=== PATIENT | female | born 1995 | race African-American/Black ===

== ENCOUNTER 2023-05-20 11:01 | Emergency (ER) | payer MEDICAID ==
[~2023-05-20] VITALS: Ht 160 cm; Wt 96.5 kg
[2023-05-20 12:03] LABS: Alanine Aminotransferase 10 U/L (7-40); Alkaline Phosphatase 188 U/L (46-116); Anion Gap 13 (5-15); Calcium 9.9 mg/dL (8.5-10.1); Carbon Dioxide 18 mmol/L (20-30); Chloride 105 mmol/L (98-107); Glucose 102 mg/dL (74-106); Potassium 3.6 mmol/L (3.5-5.1); Sodium 136 mmol/L (136-145)
[2023-05-20 12:04] LABS: Albumin 4.1 g/dL (3.2-4.8); Aspartate Aminotransferase 11 U/L (13-40); Bilirubin, Total 0.4 mg/dL (0.2-1.0); Total Protein 7.7 g/dL (5.7-8.2)
[2023-05-20 12:05] LABS: BUN/Creatinine Ratio 8.8 (10.0-20.0); Blood Urea Nitrogen < 5 mg/dL (9-23)
[2023-05-20 12:09] VITALS: BP 100/63; PULSE 90; RESP 18; TEMP 97.1; O2SAT 100
[2023-05-20 13:07] LABS: Urine Bacteria MOD /hpf (None Seen); Urine Blood 1+ /uL (Negative); Urine Clarity HAZY (Clear); Urine Color Yellow (Yellow); Urine Mucus FEW (None Seen); Urine Protein, UAD TRACE (Negative); Urine Specific Gravity 1.021 (1.001-1.035); Urine Urobilinogen Normal (Negative); Urine WBC 10 /hpf (0 - 5); Urine pH 5.5 (5.0-8.0)
[2023-05-20] MEDS ORDERED: ACET-1304 PO (13:15)
[2023-05-20] MEDS ORDERED: CEPH500C PO (13:15)
== END 2023-05-20 13:23 | disposition home or self-care (01) ==
LOC: ER 11:01
DX: O20.0 Threatened abortion (principal); O23.42 Unspecified infection of urinary tract in pregnancy, second trimester; N39.0 Urinary tract infection, site not specified; J03.90 Acute tonsillitis, unspecified; Z3A.15 15 weeks gestation of pregnancy; Z79.899 Other long term (current) drug therapy
CPT/HCPCS: 36415; 76805; 80053; 81001; 84702

== ENCOUNTER 2023-09-20 09:05 | Observation (INO) | payer MEDICAID ==
[~2023-09-20 09:05] MED LIST: ACET-1304 PO; CEPH500C PO
[2023-09-20] MEDS ORDERED: PREN-96 PO (10:06)
== END 2023-09-20 10:43 | disposition home or self-care (01) ==
LOC: UNDOADMOB 09:05 → LDRP 09:05 → UNDODISOB 10:43
PROVIDERS: ADMIT Obstetrics & Gynecology; ATTEND Obstetrics & Gynecology
DX: O99.283 Endocrine, nutritional and metabolic diseases complicating pregnancy, third trimester (principal); E05.00 Thyrotoxicosis with diffuse goiter without thyrotoxic crisis or storm; Z3A.32 32 weeks gestation of pregnancy
CPT/HCPCS: 59025; 76818; 81002; G0378

== ENCOUNTER 2023-09-24 08:52 | Observation (INO) | payer MEDICAID ==
[~2023-09-24 08:52] MED LIST changes: +PREN-96 PO
[2023-09-24] MEDS ORDERED: METH5TAB98 PO (09:47)
== END 2023-09-24 11:00 | disposition home or self-care (01) ==
LOC: UNDOADMOB 08:52 → LDRP 08:52
PROVIDERS: ADMIT Obstetrics & Gynecology; ATTEND Obstetrics & Gynecology
DX: O99.283 Endocrine, nutritional and metabolic diseases complicating pregnancy, third trimester (principal); E03.9 Hypothyroidism, unspecified; Z3A.33 33 weeks gestation of pregnancy
CPT/HCPCS: 59025; 76818; 81002; G0378

== ENCOUNTER 2023-09-28 09:09 | Observation (INO) | payer MEDICAID ==
[~2023-09-28 09:09] MED LIST changes: +METH5TAB98 PO
== END 2023-09-28 13:34 | disposition home or self-care (01) ==
LOC: LDRP 12:01 → UNDOADMOB 12:01 → LDRP 12:10
PROVIDERS: ADMIT Obstetrics & Gynecology; ATTEND Obstetrics & Gynecology
DX: O99.283 Endocrine, nutritional and metabolic diseases complicating pregnancy, third trimester (principal); E05.90 Thyrotoxicosis, unspecified without thyrotoxic crisis or storm; O21.2 Late vomiting of pregnancy; O26.893 Other specified pregnancy related conditions, third trimester; R51.9 Headache, unspecified; H53.8 Other visual disturbances; N89.8 Other specified noninflammatory disorders of vagina; Z3A.33 33 weeks gestation of pregnancy; Z98.891 History of uterine scar from previous surgery
CPT/HCPCS: 59025; 76818; 81002; 94760; G0378

== ENCOUNTER 2023-10-01 11:07 | Observation (INO) | payer MEDICAID | END 2023-10-01 13:51 | disposition home or self-care (01) | LOC: UNDOADMOB 11:07 → LDRP 11:07 | PROVIDERS: ADMIT Obstetrics & Gynecology; ATTEND Obstetrics & Gynecology | DX: O99.283 Endocrine, nutritional and metabolic diseases complicating pregnancy, third trimester (principal); E05.90 Thyrotoxicosis, unspecified without thyrotoxic crisis or storm; Z3A.35 35 weeks gestation of pregnancy | CPT/HCPCS: 59025; 76818; 81002; 94760; G0378 ==

== ENCOUNTER 2023-10-05 10:20 | Observation (INO) | payer MEDICAID ==
[2023-10-05 17:18] LABS: Urine Bacteria None Seen /hpf (None Seen)
[2023-10-05 17:19] LABS: Basophils # (auto) 0 10 ^3/uL (0-0.2); Basophils % (auto) 0.3 % (0.0-2.0); Eosinophils # (auto) 0 10 ^3/uL (0-0.8); Eosinophils % (auto) 0.6 % (0.0-7.0); Hematocrit 30.3 % (36.0-46.0); Hemoglobin 9.7 g/dL (12.2-16.2); Lymphocytes # (auto) 2.6 10 ^3/uL (0.4-5.4); Lymphocytes % (auto) 41.2 % (10.0-50.0); Mean Corpuscular Hemoglobin 24.7 pg (28.0-32.0); Mean Corpuscular Hgb Conc. 32.1 g/dL (32.0-36.0); Mean Corpuscular Volume 77.1 fL (80.0-100.0); Monocytes # (auto) 0.5 10 ^3/uL (0-1.3); Monocytes % (auto) 7.4 % (0.0-12.0); Neutrophils # (auto) 3.2 10 ^3/uL (1.6-8.6); Neutrophils % (auto) 50.5 % (37.0-80.0); Nucleated Red Blood Cells % 0.1 %; Red Blood Cells 3.94 10^6/uL (4.0-5.20); White Blood Cell 6.4 10^3/uL (4.4-10.8)
[2023-10-05 17:26] LABS: Urine Blood Negative /uL (Negative); Urine Clarity Turbid (Clear); Urine Color Yellow (Yellow); Urine Mucus FEW (None Seen); Urine Protein, UAD TRACE (Negative); Urine Specific Gravity 1.016 (1.001-1.035); Urine Urobilinogen 2 mg/dL (Negative); Urine WBC 3 /hpf (0 - 5)
[2023-10-05 17:33] LABS: INR 0.96 (0.9-1.15); Partial Thromboplastin Time 25.6 SEC (24.5-34.5); Prothrombin Time 10.2 sec (9.3-11.8)
[2023-10-05 17:36] LABS: Protein, Urine 34.5 mg/dL (0.0-11.9)
[2023-10-05 17:37] LABS: Alkaline Phosphatase 146 U/L (46-116); Anion Gap 6 (5-15); Aspartate Aminotransferase < 8 U/L (13-40); Calcium 8.1 mg/dL (8.7-10.4); Carbon Dioxide 23 mmol/L (20-30); Chloride 107 mmol/L (98-107); Glucose 80 mg/dL (74-106); Potassium 3.5 mmol/L (3.5-5.1); Sodium 136 mmol/L (136-145); Uric Acid 4.4 mg/dL (3.1-7.8)
[2023-10-05 17:38] LABS: Bilirubin, Total 0.3 mg/dL (0.2-1.0)
[2023-10-05 17:39] LABS: Creatinine, Urine 142.19 mg/dL (30.0-125.0); Urine Protein/Creatinine Ratio 0.24
[2023-10-05 18:04] LABS: Alanine Aminotransferase < 9 U/L (7-40); BUN/Creatinine Ratio 10.2 (10.0-20.0); Blood Urea Nitrogen < 5 mg/dL (9-23)
[2023-10-05] MEDS ORDERED: FER325T PO (18:07)
[2023-10-05] MEDS ORDERED: ASCO500T11 PO (18:07)
== END 2023-10-05 18:28 | disposition home or self-care (01) ==
LOC: UNDOADMOB 15:35 → LDRP 15:35
PROVIDERS: ADMIT Obstetrics & Gynecology; ATTEND Obstetrics & Gynecology
DX: O99.283 Endocrine, nutritional and metabolic diseases complicating pregnancy, third trimester (principal); E05.90 Thyrotoxicosis, unspecified without thyrotoxic crisis or storm; O99.013 Anemia complicating pregnancy, third trimester; D50.9 Iron deficiency anemia, unspecified; O26.893 Other specified pregnancy related conditions, third trimester; R51.9 Headache, unspecified; Z3A.34 34 weeks gestation of pregnancy; Z86.2 Personal history of diseases of the blood and blood-forming organs and certain disorders involving the immune mechanism
CPT/HCPCS: 36415; 59025; 76818; 80053; 81001; 81002; 82570; 84156; 84550; 85025; 85610; 85730; 94760; G0378

== ENCOUNTER 2023-10-08 08:46 | Observation (INO) | payer MEDICAID ==
[~2023-10-08 08:46] MED LIST changes: -ACET-1304 PO; +ASCO500T11 PO; -CEPH500C PO; +FER325T PO
== END 2023-10-08 10:00 | disposition home or self-care (01) ==
LOC: LDRP 08:46 → UNDOADMOB 08:46 → LDRP 08:47 → UNDODISOB 10:00
PROVIDERS: ADMIT Obstetrics & Gynecology; ATTEND Obstetrics & Gynecology
DX: O99.283 Endocrine, nutritional and metabolic diseases complicating pregnancy, third trimester (principal); E05.90 Thyrotoxicosis, unspecified without thyrotoxic crisis or storm; Z3A.35 35 weeks gestation of pregnancy
CPT/HCPCS: 59025; 76818; 81002; 94760; G0378

== ENCOUNTER 2023-10-08 12:30 | Observation (INO) | payer MEDICAID ==
[2023-10-08 13:43] LABS: Fern Testing Negative
== END 2023-10-08 14:06 | disposition home or self-care (01) ==
LOC: UNDOADMOB 12:30 → LDRP 12:30
PROVIDERS: ADMIT Obstetrics & Gynecology; ATTEND Obstetrics & Gynecology
DX: O99.283 Endocrine, nutritional and metabolic diseases complicating pregnancy, third trimester (principal); E05.90 Thyrotoxicosis, unspecified without thyrotoxic crisis or storm; Z3A.35 35 weeks gestation of pregnancy
CPT/HCPCS: 59025; 81002; 84112; 94760; G0378; Q0114

== ENCOUNTER 2023-10-12 08:13 | Observation (INO) | payer MEDICAID | END 2023-10-12 11:25 | disposition home or self-care (01) | LOC: LDRP 09:07 → UNDOADMOB 09:07 → LDRP 09:26 → UNDODISOB 11:25 | PROVIDERS: ADMIT Obstetrics & Gynecology; ATTEND Obstetrics & Gynecology | DX: O99.283 Endocrine, nutritional and metabolic diseases complicating pregnancy, third trimester (principal); E05.90 Thyrotoxicosis, unspecified without thyrotoxic crisis or storm; Z3A.35 35 weeks gestation of pregnancy | CPT/HCPCS: 59025; 76818; 81002; G0378 ==

== ENCOUNTER 2023-10-15 09:17 | Observation (INO) | payer MEDICAID | END 2023-10-15 10:55 | disposition home or self-care (01) | LOC: LDRP 09:17 → UNDOADMOB 09:17 → LDRP 09:36 → UNDODISOB 10:55 | PROVIDERS: ADMIT Obstetrics & Gynecology; ATTEND Obstetrics & Gynecology | DX: O99.283 Endocrine, nutritional and metabolic diseases complicating pregnancy, third trimester (principal); E03.9 Hypothyroidism, unspecified; O26.893 Other specified pregnancy related conditions, third trimester; R51.9 Headache, unspecified; Z3A.36 36 weeks gestation of pregnancy | CPT/HCPCS: 59025; 76818; 81002; G0378 ==

== ENCOUNTER 2023-10-19 08:31 | Observation (INO) | payer MEDICAID ==
[2023-10-19 13:51] LABS: Urine Bacteria None Seen /hpf (None Seen)
[2023-10-19 14:08] LABS: Urine Blood Negative /uL (Negative); Urine Clarity Turbid (Clear); Urine Color Light-Yellow (Yellow); Urine Mucus FEW (None Seen); Urine Protein, UAD Negative (Negative); Urine Specific Gravity 1.014 (1.001-1.035); Urine Urobilinogen Normal (Negative); Urine WBC 6 /hpf (0 - 5)
== END 2023-10-19 13:30 | disposition home or self-care (01) ==
LOC: UNDOADMOB 11:47 → LDRP 11:47 → UNDODISOB 13:30
PROVIDERS: ADMIT Obstetrics & Gynecology; ATTEND Obstetrics & Gynecology
DX: O99.283 Endocrine, nutritional and metabolic diseases complicating pregnancy, third trimester (principal); E05.90 Thyrotoxicosis, unspecified without thyrotoxic crisis or storm; Z3A.36 36 weeks gestation of pregnancy; Z79.899 Other long term (current) drug therapy
CPT/HCPCS: 59025; 76818; 81001; 81002; 87086; 94760; G0378

== ENCOUNTER 2023-10-22 07:14 | Observation (INO) | payer MEDICAID | END 2023-10-22 12:00 | disposition home or self-care (01) | LOC: LDRP 09:43 → UNDOADMOB 09:43 → LDRP 09:48 | PROVIDERS: ADMIT Obstetrics & Gynecology; ATTEND Obstetrics & Gynecology | DX: O99.283 Endocrine, nutritional and metabolic diseases complicating pregnancy, third trimester (principal); E05.90 Thyrotoxicosis, unspecified without thyrotoxic crisis or storm; Z3A.37 37 weeks gestation of pregnancy | CPT/HCPCS: 59025; 76818; 81002; 94760; G0378 ==

== ENCOUNTER 2023-10-26 10:52 | Observation (INO) | payer MEDICAID ==
[2023-10-26 13:49] LABS: Urine Bacteria None Seen /hpf (None Seen)
[2023-10-26 13:58] LABS: Urine Blood Negative /uL (Negative); Urine Clarity Turbid (Clear); Urine Color Light-Yellow (Yellow); Urine Protein, UAD Negative (Negative); Urine Specific Gravity 1.014 (1.001-1.035); Urine Urobilinogen Normal (Negative); Urine WBC 7 /hpf (0 - 5); Urine pH 6.5 (5.0-9.0)
[2023-10-26 14:00] LABS: Basophils # (auto) 0 10 ^3/uL (0-0.2); Eosinophils # (auto) 0 10 ^3/uL (0-0.8); Lymphocytes # (auto) 1.9 10 ^3/uL (0.4-5.4); Nucleated Red Blood Cells % 0.1 %
[2023-10-26 14:01] LABS: Protein, Urine 18.6 mg/dL (0.0-11.9)
[2023-10-26 14:03] LABS: Basophils % (auto) 0.2 % (0.0-2.0); Eosinophils % (auto) 0.4 % (0.0-7.0); Hematocrit 28.5 % (36.0-46.0); Hemoglobin 9.5 g/dL (12.2-16.2); Lymphocytes % (auto) 37.1 % (10.0-50.0); Mean Corpuscular Hemoglobin 25.6 pg (28.0-32.0); Mean Corpuscular Hgb Conc. 33.2 g/dL (32.0-36.0); Monocytes # (auto) 0.5 10 ^3/uL (0-1.3); Monocytes % (auto) 9.7 % (0.0-12.0); Neutrophils # (auto) 2.7 10 ^3/uL (1.6-8.6); Neutrophils % (auto) 52.6 % (37.0-80.0); Red Blood Cells 3.71 10^6/uL (4.0-5.20); Red Cell Distribution Width 14.9 % (11.8-14.3); White Blood Cell 5.1 10^3/uL (4.4-10.8)
[2023-10-26 14:04] LABS: Creatinine, Urine 96.98 mg/dL (30.0-125.0); Urine Protein/Creatinine Ratio 0.19
[2023-10-26 14:13] LABS: INR 0.92 (0.9-1.15); Partial Thromboplastin Time 25.1 SEC (24.5-34.5); Prothrombin Time 9.8 sec (9.3-11.8)
[2023-10-26 14:18] LABS: Albumin 3.2 g/dL (3.2-4.8); Alkaline Phosphatase 156 U/L (46-116); Anion Gap 8 (5-15); Aspartate Aminotransferase < 8 U/L (13-40); Calcium 8.4 mg/dL (8.7-10.4); Carbon Dioxide 21 mmol/L (20-30); Chloride 108 mmol/L (98-107); Glucose 72 mg/dL (74-106); Potassium 3.7 mmol/L (3.5-5.1); Sodium 137 mmol/L (136-145); Uric Acid 4.7 mg/dL (3.1-7.8)
[2023-10-26 14:19] LABS: Bilirubin, Total 0.3 mg/dL (0.2-1.0); Total Protein 6.1 g/dL (5.7-8.2)
[2023-10-26 14:21] LABS: Alanine Aminotransferase < 9 U/L (7-40); BUN/Creatinine Ratio 9.4 (10.0-20.0); Blood Urea Nitrogen < 5 mg/dL (9-23)
== END 2023-10-26 14:56 | disposition home or self-care (01) ==
LOC: LDRP 12:12 → UNDOADMOB 12:12 → LDRP 12:24
PROVIDERS: ADMIT Obstetrics & Gynecology; ATTEND Obstetrics & Gynecology
DX: O99.283 Endocrine, nutritional and metabolic diseases complicating pregnancy, third trimester (principal); E05.90 Thyrotoxicosis, unspecified without thyrotoxic crisis or storm; O21.2 Late vomiting of pregnancy; Z3A.37 37 weeks gestation of pregnancy; Z98.891 History of uterine scar from previous surgery; Z86.2 Personal history of diseases of the blood and blood-forming organs and certain disorders involving the immune mechanism
CPT/HCPCS: 36415; 59025; 76818; 80053; 81001; 81002; 82570; 84156; 84550; 85025; 85610; 85730; 94760; G0378

== ENCOUNTER 2023-10-29 11:48 | Observation (INO) | payer MEDICAID | END 2023-10-29 14:00 | disposition home or self-care (01) | LOC: LDRP 11:48 → UNDOADMOB 11:48 → LDRP 12:23 | PROVIDERS: ADMIT Obstetrics & Gynecology; ATTEND Obstetrics & Gynecology | DX: O99.283 Endocrine, nutritional and metabolic diseases complicating pregnancy, third trimester (principal); E05.90 Thyrotoxicosis, unspecified without thyrotoxic crisis or storm; Z3A.38 38 weeks gestation of pregnancy | CPT/HCPCS: 59025; 76818; 81002; 82948; G0378 ==

== ENCOUNTER 2023-11-02 09:57 | Observation (INO) | payer MEDICAID ==
[~2023-11-02] VITALS: Ht 162.6 cm; Wt 90.7 kg
[2023-11-02] MEDS: LACTATED RINGER'S 1,000 ML IV ONE (12:51)
== END 2023-11-02 13:06 | disposition home or self-care (01) ==
LOC: LDRP 10:35 → UNDOADMOB 10:35 → LDRP 10:42
PROVIDERS: ADMIT Obstetrics & Gynecology; ATTEND Obstetrics & Gynecology
DX: O99.283 Endocrine, nutritional and metabolic diseases complicating pregnancy, third trimester (principal); E05.90 Thyrotoxicosis, unspecified without thyrotoxic crisis or storm; O99.013 Anemia complicating pregnancy, third trimester; D50.9 Iron deficiency anemia, unspecified; O26.893 Other specified pregnancy related conditions, third trimester; R00.2 Palpitations; Z3A.38 38 weeks gestation of pregnancy; Z98.891 History of uterine scar from previous surgery
CPT/HCPCS: 59025; 76818; 81002; 94760; 96360; 96361; G0378

== ENCOUNTER 2023-11-04 04:09 | Inpatient (IN) | payer MEDICAID ==
[2023-11-02 11:46] LABS: Basophils # (auto) 0 10 ^3/uL (0-0.2); Eosinophils # (auto) 0 10 ^3/uL (0-0.8); Eosinophils % (auto) 0.5 % (0.0-7.0); Monocytes # (auto) 0.3 10 ^3/uL (0-1.3); Nucleated Red Blood Cells % 0.1 %
[2023-11-02 11:48] LABS: Basophils % (auto) 0.4 % (0.0-2.0); Hematocrit 30.6 % (36.0-46.0); Hemoglobin 10.2 g/dL (12.2-16.2); Lymphocytes # (auto) 1.5 10 ^3/uL (0.4-5.4); Mean Corpuscular Hemoglobin 25.7 pg (28.0-32.0); Mean Corpuscular Hgb Conc. 33.3 g/dL (32.0-36.0); Mean Corpuscular Volume 77.1 fL (80.0-100.0); Monocytes % (auto) 5.4 % (0.0-12.0); Neutrophils # (auto) 4.1 10 ^3/uL (1.6-8.6); Neutrophils % (auto) 68.7 % (37.0-80.0); Red Blood Cells 3.98 10^6/uL (4.0-5.20); Red Cell Distribution Width 15.5 % (11.8-14.3)
[2023-11-02 12:01] LABS: INR 0.94 (0.9-1.15); Partial Thromboplastin Time 25.5 SEC (24.5-34.5)
[2023-11-02 12:10] LABS: Albumin 3.4 g/dL (3.2-4.8); Alkaline Phosphatase 170 U/L (46-116); Anion Gap 9 (5-15); Aspartate Aminotransferase < 8 U/L (13-40); Calcium 8.8 mg/dL (8.5-10.1); Carbon Dioxide 21 mmol/L (20-30); Chloride 107 mmol/L (98-107); Glucose 117 mg/dL (74-106); Potassium 3.1 mmol/L (3.5-5.1); Sodium 137 mmol/L (136-145)
[2023-11-02 12:11] LABS: Alanine Aminotransferase < 9 U/L (7-40); BUN/Creatinine Ratio 7.8 (10.0-20.0); Bilirubin, Total 0.4 mg/dL (0.2-1.0); Blood Urea Nitrogen < 5 mg/dL (9-23); Total Protein 6.4 g/dL (5.7-8.2)
[2023-11-03 08:07] LABS: RPR Non Reactive (Non Reactive)
[2023-11-04] VITALS (15 sets, daily range): BP systolic 97–115; BP diastolic 59–78; PULSE 61–97; RESP 16–18; TEMP 97.9–98.4; O2SAT 97–100
[~2023-11-04] VITALS: Ht 162.6 cm; Wt 104.3 kg
[2023-11-04 04:43] LABS: Urine Bacteria FEW /hpf (None Seen); Urine Blood Negative /uL (Negative); Urine Clarity Clear (Clear); Urine Color Light-Yellow (Yellow); Urine Protein, UAD Negative (Negative); Urine Specific Gravity 1.009 (1.001-1.035); Urine Urobilinogen Normal (Negative); Urine WBC 1 /hpf (0 - 5); Urine pH 6.5 (5.0-9.0)
[2023-11-04 05:10] LABS: Amphetamine Screen, Urine Neg (NEGATIVE); Barbiturate Scree,Urine Neg (NEGATIVE); Benzodiazephine Screen, Urine Neg (NEGATIVE); Cannabinoid Screen, Urine Neg (NEGATIVE); Cocaine Screen, Urine Neg (NEGATIVE); Opiate Scree,Urine Neg (NEGATIVE); Phencyclidine Screen, Urine Neg (NEGATIVE)
[2023-11-04] MEDS: LACTATED RINGER'S 1,000 ML IV ONE (05:32)
[2023-11-04] MEDS: SODIUM CITR/CITRIC ACID ORAL SOLN 30 ML PO ONE (07:33)
[2023-11-04] MEDS ORDERED: MORPHINE SULF PF 5 MG/10 ML VIAL ONE (07:33)
[2023-11-04] MEDS: ceFAZolin 2 GM/D5W50ml 50 ML IV ONE (07:36)
[2023-11-04] MEDS: LACTATED RINGER'S 1,000 ML IV SCH ×2 (07:39→10:33)
[2023-11-04] MEDS ORDERED: fentaNYL CITRATE 100 MCG/2 ML VL ONE (08:37)
[2023-11-04] MEDS ORDERED: SODIUM CITR/CITRIC ACID ORAL SOLN 30 ML PO SCH (09:00)
[2023-11-04] MEDS ORDERED: ePHEDrine SULFATE 50 MG/ML AMP ONE (09:00)
[2023-11-04] MEDS ORDERED: oxyTOCIN 10 UNIT/ML 10ML VIAL ONE (09:00)
[2023-11-04] MEDS: HYDROmorphone HCL 2 MG/ML VL/or syr IV PRN ×2 (09:05→11:48)
[2023-11-04] MEDS ORDERED: METOCLOPRAMIDE HCL 5MG/ml INJ 2ml VIAL ONE (09:10)
[2023-11-04] MEDS ORDERED: DexAMETHasone SOD PHOS 10MG/1ML VIAL INJ IV PRN (09:15)
[2023-11-04] MEDS ORDERED: NALOXONE HCL 0.4 MG/ML VIAL IV PRN (09:15)
[2023-11-04] MEDS ORDERED: diphenhdrAMINE HCL 50 MG/1 ML VL IV PRN (09:15)
[2023-11-04] MEDS ORDERED: ONDANSETRON HCL 4 MG/2 ML VIAL IV PRN (09:15)
[2023-11-04] MEDS: ACETAMINOPHEN IV 1000 MG/100ML (10MG/ML) IV PRN ×2 (10:33→21:05)
[2023-11-04 10:48] LABS: Basophils # (auto) 0 10 ^3/uL (0-0.2); Basophils % (auto) 0.2 % (0.0-2.0); Eosinophils # (auto) 0 10 ^3/uL (0-0.8); Hematocrit 29.9 % (36.0-46.0); Hemoglobin 9.8 g/dL (12.2-16.2); Lymphocytes # (auto) 1.7 10 ^3/uL (0.4-5.4); Monocytes # (auto) 0.4 10 ^3/uL (0-1.3); Neutrophils # (auto) 4.5 10 ^3/uL (1.6-8.6); Nucleated Red Blood Cells % 0.1 %; White Blood Cell 6.6 10^3/uL (4.4-10.8)
[2023-11-04 10:50] LABS: Eosinophils % (auto) 0.2 % (0.0-7.0); Lymphocytes % (auto) 25.2 % (10.0-50.0); Mean Corpuscular Hemoglobin 25.4 pg (28.0-32.0); Mean Corpuscular Hgb Conc. 32.7 g/dL (32.0-36.0); Mean Corpuscular Volume 77.6 fL (80.0-100.0); Neutrophils % (auto) 68.4 % (37.0-80.0); Red Blood Cells 3.86 10^6/uL (4.0-5.20); Red Cell Distribution Width 15.2 % (11.8-14.3)
[2023-11-04] MEDS ORDERED: IBUP-1456 PO (12:51)
[2023-11-04] MEDS ORDERED: HYDR1TAB97 PO (12:51)
[2023-11-04] MEDS: ceFAZolin 1GM/50ML 50 ML IV SCH (15:11)
[2023-11-04 19:06] LABS: Treponema pallidum Ab (FTA-Ab) Non Reactive (Non Reactive)
[2023-11-04] MEDS: KETOROLAC TROMETH 30 MG/ML 1ML VIAL IV PRN (20:06)
[2023-11-05] VITALS (8 sets, daily range): BP systolic 99–126; BP diastolic 58–71; PULSE 60–82; RESP 16–18; TEMP 98.4–98.9; O2SAT 96–100
[2023-11-05 07:35] LABS: Basophils # (auto) 0 10 ^3/uL (0-0.2); Eosinophils # (auto) 0 10 ^3/uL (0-0.8); Hematocrit 25.9 % (36.0-46.0); Hemoglobin 8.7 g/dL (12.2-16.2); Mean Corpuscular Hemoglobin 26.2 pg (28.0-32.0); Mean Corpuscular Hgb Conc. 33.7 g/dL (32.0-36.0); Mean Corpuscular Volume 77.7 fL (80.0-100.0); Monocytes # (auto) 0.5 10 ^3/uL (0-1.3); Nucleated Red Blood Cells % 0.1 %; Red Blood Cells 3.33 10^6/uL (4.0-5.20)
[2023-11-05 07:36] LABS: Alkaline Phosphatase 132 U/L (46-116); Anion Gap 5 (5-15); Calcium 8.4 mg/dL (8.5-10.1); Carbon Dioxide 24 mmol/L (20-30); Chloride 109 mmol/L (98-107); Glucose 86 mg/dL (74-106); Potassium 3.9 mmol/L (3.5-5.1); Sodium 138 mmol/L (136-145)
[2023-11-05 07:37] LABS: Alanine Aminotransferase < 9 U/L (7-40); BUN/Creatinine Ratio 7.4 (10.0-20.0); Basophils % (auto) 0.2 % (0.0-2.0); Blood Urea Nitrogen < 5 mg/dL (9-23); Eosinophils % (auto) 0.5 % (0.0-7.0); Lymphocytes # (auto) 1.5 10 ^3/uL (0.4-5.4); Lymphocytes % (auto) 22.2 % (10.0-50.0); Monocytes % (auto) 8.3 % (0.0-12.0); Neutrophils # (auto) 4.6 10 ^3/uL (1.6-8.6); Neutrophils % (auto) 68.8 % (37.0-80.0); Red Cell Distribution Width 15.6 % (11.8-14.3); White Blood Cell 6.6 10^3/uL (4.4-10.8)
[2023-11-05 07:38] LABS: Albumin 2.8 g/dL (3.2-4.8); Aspartate Aminotransferase 16 U/L (13-40); Bilirubin, Total 0.3 mg/dL (0.2-1.0); Total Protein 5.2 g/dL (5.7-8.2)
[2023-11-05] MEDS: ONDANSETRON HCL 4 MG/2 ML VIAL IV ONE (08:00)
[2023-11-05] MEDS: HYDROmorphone HCL 2 MG/ML VL/or syr ONE (08:00)
[2023-11-05] MEDS: ONDANSETRON HCL 4 MG/2 ML VIAL IV PRN (09:56)
[2023-11-05] MEDS: METOCLOPRAMIDE HCL 5MG/ml INJ 2ml VIAL IV ONE (10:00)
[2023-11-05] MEDS ORDERED: BISACODYL 10 MG RECT SUPP PR PRN (10:00)
[2023-11-05] MEDS: TETRACAINE 1% INJ 2 ML VIAL IJ ONE (10:01)
[2023-11-05] MEDS: DOCUSATE SOD 100 MG CAP PO SCH (10:59)
[2023-11-05] MEDS: DOCUSATE CALCIUM 240 MG CAP PO SCH (11:00)
[2023-11-05] MEDS: SIMETHICONE 80 MG CHEWABLE TABLET PO SCH (12:32)
[2023-11-05] MEDS: IBUPROFEN 800 MG TAB PO PRN (12:33)
[2023-11-05] MEDS: HYDROcodone-ACET 5/325MG TAB PO PRN (17:48)
[2023-11-06 02:50] VITALS: BP 100/71; PULSE 77; RESP 17; TEMP 98.5; O2SAT 98
[2023-11-06] MEDS: NALBUPHINE HCL 10 MG/1ml INJECTION SUBCUT ONE (06:50)
[2023-11-06 07:00] VITALS: BP 108/73; PULSE 65; RESP 20; TEMP 97.8; O2SAT 97
[2023-11-06] MEDS: FERROUS SULFATE 325mg EC TAB PO SCH (10:51)
[2023-11-06 11:00] VITALS: BP 117/76; PULSE 69; RESP 20; TEMP 98.7; O2SAT 97
[2023-11-06] MEDS: HYDROcodone-ACET 5/325MG TAB PO PRN (11:58)
[2023-11-06 15:00] VITALS: BP 119/75; PULSE 75; RESP 18; TEMP 98; O2SAT 100
[2023-11-06 19:00] VITALS: BP 116/64; PULSE 88; RESP 18; TEMP 98.6; O2SAT 100
[2023-11-06 23:00] VITALS: BP_SYST 111; BP_SYST 112; BP_DIAS 65; BP_DIAS 68; PULSE 64; PULSE 80; RESP 16; TEMP 97.7; TEMP 98.5; O2SAT 97; O2SAT 98
[2023-11-07 03:20] VITALS: BP 112/68; PULSE 82; RESP 18; TEMP 98; O2SAT 98
[2023-11-07 07:15] VITALS: BP 105/65; PULSE 65; RESP 18; TEMP 98.5; O2SAT 98
[2023-11-07 11:00] VITALS: BP 121/73; PULSE 63; RESP 20; TEMP 98.1; O2SAT 97
[2023-11-07 15:16] VITALS: BP 117/73; PULSE 60; RESP 16; TEMP 97.9; O2SAT 99
[2023-11-07] MEDS: CYCLOBENZAPRINE HCL 10 MG TAB PO ONE (17:37)
[2023-11-07 19:00] VITALS: BP 124/78; PULSE 64; RESP 18; TEMP 98.7; O2SAT 100
[2023-11-07 22:40] VITALS: BP 111/68; PULSE 77; RESP 18; TEMP 97.7; O2SAT 97
[2023-11-08 03:00] VITALS: BP 117/80; PULSE 69; RESP 16; TEMP 98.4; O2SAT 97
[2023-11-08 07:00] VITALS: BP 118/76; PULSE 59; RESP 18; TEMP 98; O2SAT 96
[2023-11-08 11:06] LABS: Free T4 (Free Thyroxine) 0.88 ng/dL (0.89-1.76); T3 Total 1.74 ng/mL (0.60-1.81)
== END 2023-11-08 10:24 | disposition home or self-care (01) | DRG 540 ==
LOC: LDRP 04:09
PROVIDERS: ADMIT Obstetrics & Gynecology; ATTEND Obstetrics & Gynecology
PROC: 10D00Z1 Extraction of Products of Conception, Low, Open Approach (ICD-10-PCS; principal; 2023-11-04 07:44)
PROC: 3E0R3GC Introduction of Other Therapeutic Substance into Spinal Canal, Percutaneous Approach (ICD-10-PCS; 2023-11-07)
DX: O34.211 Maternal care for low transverse scar from previous cesarean delivery (principal); E05.00 Thyrotoxicosis with diffuse goiter without thyrotoxic crisis or storm; O99.284 Endocrine, nutritional and metabolic diseases complicating childbirth; Z37.0 Single live birth; Z3A.39 39 weeks gestation of pregnancy; Z56.0 Unemployment, unspecified; O99.02 Anemia complicating childbirth; R51.9 Headache, unspecified; O74.5 Spinal and epidural anesthesia-induced headache during labor and delivery
CPT/HCPCS: 36415; 59025; 80053; 80307; 81001; 84436; 84439; 84443; 84480; 85025; 85610; 85730; 86592; 86803; 86850; 86900; 86901; 94760; 94762; 96360; 96361; 96374; G0378; J0131; J1885; J2405; J2590

== ENCOUNTER 2024-04-07 08:43 | Emergency (ER) | payer MEDICAID ==
[~2024-04-07] VITALS: Ht 160 cm; Wt 104.0 kg
[~2024-04-07 08:43] MED LIST changes: +HYDR1TAB97 PO; +IBUP-1456 PO; -METH5TAB98 PO
[2024-04-07 09:38] VITALS: BP 134/83; PULSE 101; RESP 20; TEMP 97.3; O2SAT 99
--- NOTE | 2024-04-07 09:48 | ED.PDOC ---
SOB-HPI HPI Comments A 29 YEAR OLD FEMALE PRESENTS TO THE ED WITH COMPLAINT OF COUGH. PATIENT STATES HE HAS BEEN EXPERIENCING A COUGH AND CONGESTION OFF AND ON FOR THE PAST 10 DAYS. PATIENT DENIES FEVER, CHILLS, SHORTNESS OF BREATH, CHEST PAIN, ABDOMINAL PAIN, NAUSEA, VOMITING, HEADACHE, OR OTHER COMPLAINTS. NO OTHER SYMPTOMS OR MODIFYING FACTORS AT THIS TIME. PATIENT IS ALERT, ORIENTED X 4, AND HAS STEADY GAIT. 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: No Pertinent MANUFACTURE SPECIALIST History Family History Family History: Reviewed,noncontributory to illness Social History Smoker: Non-Smoker Alcohol: Denies ETOH Use Drugs: Denies Drug Use Lives In: Home Constitutional: denies: chills, diaphoresis, fatigue, fever, malaise, sweats, weakness, others EENTM: reports: nose congestion; denies: blurred vision, double vision, ear bleeding, ear discharge, ear drainage, ear pain, ear ringing, eye pain, eye redn ess, hearing loss, mouth pain, mouth swelling, nasal discharge, nose bleeding, nose pain, photophobia, tearing, throat pain, throat swelling, voice changes, others Respiratory: reports: cough; denies: hemoptysis, orthopnea, SOB at rest, shortness of breath, SOB with excertion, stridor, wheezing, others Cardiovascular: denies: chest pain, dizzy spells, diaphoresis, Dyspnea on exertion, edema, irregular heart beat, left arm pain, lightheadedness, palpitations, PND, syncope, others Gastrointestinal: denies: abdomen distended, abdominal pain, blood streaked bowels, constipated, diarrhea, dysphagia, difficulty swallowing, hematemesis, melena, nausea, poor appetite, poor fluid intake, rectal bleeding, rectal pain, vomiting, others Genitourinary: denies: abnormal vagina bleeding, burning, dyspareunia, dysuria, flank pain, frequency, hematuria, incontinence, pain, , vagina discharge, urgency, others Neurological: denies: dizziness, fainting, headache, left sided numbness, left sided weakness, numbness, paresthesia, pre-existing deficit, right sided numbness, right sided weakness, seizure, speech problems, tingling, tremors, weakness, others Musculoskeletal: denies: back pain, gout, joint pain, joint swelling, muscle pain, muscle stiffness, neck pain, others Integumetry: denies: bruises, change in color, change in hair/nails, dryness, laceration, lesions, lumps, rash, wounds, others Allergic/Immunocompromised: denies: Difficulty Healing, Frequent Infections, Hives, Itching, others Hematologic/Lymphatic: denies: anemia, blood clots, easy bleeding, easy bruising, swollen glands, others Endocrine: denies: excessive hunger, excessive sweating, excessive thirst, excessive urination, flushing, intolerance to cold, intolerance to heat, unexplained weight gain, unexplained weight loss, others Psychiatric: denies: anxiety, bipolar disorder, depression, hopeless, panic disorder, schizophrenia, sleepless, suicidal, others All Other Systems: Reviewed and Negative Physical Exam General Appearance: No Apparent Distress, Normal HEENT: Normal ENT Inspection, PERRL/EOMI, Pharynx Normal, TMs Normal Neck: Full Range of Motion, Non-Tender, Normal, Normal Inspection Respiratory: Chest Non-Tender, Expiration, No Accessory Muscle Use, No Respiratory Distress, Rhonchi Cardiovascular: No Edema, No JVD, No Murmur, No Gallop, Normal Peripheral Pulses, Regular Rate/Rhythm Breast Exam: Deferred Gastrointestinal: No Organomegaly, Non Tender, No Pulsatile Mass, Normal Bowel Sounds, Soft Genitalia: Deferred Pelvic: Deferred Rectal: Deferred Extremities: No calf tenderness, Normal capillary refill, Normal inspection, Normal range of motion, Non-tender, No pedal edema Musculoskeletal : Apperance: Normal Neurologic: Alert, head loader II-XII nml as Tested, No Motor Deficits, Normal Affect, Normal Mood, No Sensory Deficits Cerebellar Function: Normal Reflexes: Normal Skin: Dry, Normal Color, Warm Peripheral Pulses: 2+ carotid (R), 2+ carotid (L) Lymphatic: No Adenopathy Was a procedure done? Was a procedure done?: No Differential Dx Differential Diagnosis: Bronchitis, Pneumonia, Sinusitis, Allergic Rhinitis, Otitis Media, Pharyngitis, URI X-Ray, Labs, Meds, VS Vital Signs Date Time Temp Pulse Resp B/P (MAP) Pulse Ox O2 Delivery O2 Flow Rate FiO2 04/07/24 09:38 101 20 99 Room Air 04/07/24 09:38 97.3 101 20 134/83 (100) 99 97.3 04/07/24 09:03 97.3 104 20 134/83 (100) 99 X-Ray, Labs, Meds, VS Comment XR CHEST: [INTERPRETED BY ME. NO ACUTE FINDINGS. NO PNEUMONIA. NO CONSO LIDATIONS. NO INFILTRATES. PENDING RADIOLOGIST REPORT. ] Images Reviewed?: Images reviewed and evaluated by me Time of 1ST Reevaluation: 10:00 Reevaluation 1ST: Improved Patient Education/Counseling: Diagnosis, Treatment, Need For Follow Up Family Education/Counseling: Diagnosis, Treatment, Need For Follow Up Medical Screening: No EMC Exist At This Time Departure 1 Departure Time of Disposition: 10:00 Impression: Primary Impression: Acute bronchitis Qualified Codes: J20.9 - Acute bronchitis, unspecified Disposition: HOME / SELF CARE / HOMELESS Condition: Stable Additional Instructions: FOLLOW-UP WITH PCP IN 1 TO 2 DAYS. TAKE MEDICATIONS PRESCRIBED. RETURN TO ED FOR ANY NEW OR WORSENING SYMPTOMS. e-Prescriptions Promethazine-Dm (Promethazine Dm 6.25-15 mg/5Ml) 1 Kailey Kailey 5 ML PO TID, #150 ML Prov: LILIYA HUDSON 04/07/24 Azithromycin (Azithromycin) 500 Mg Tab 1 TAB PO DAILY, #5 TAB Prov: LILIYA HUDSON 04/07/24 Discharged With: Self Critical Care Note Critical Care Time?: No Stability Stability form required: No Heart Score Heart Score: Heart Score Response (Comments) Value History N/A 0 EKG N/A 0 Age N/A 0 Risk Factors N/A 0 Troponin N/A 0 Total 0 I personally scribed for LILIYA HUDSON ([email or web address]) on 04/07/24 at 09:48. Electronically submitted by Robert Chin ([email or web address]). LILIYA HUDSON Apr 07, 2024 09:48
--- NOTE | 2024-04-07 09:48 | DVH ---
XY CHEST PORTABLE, HISTORY: COUGH COMPARISON: None None TECHNICAL DATA: 1 view of the chest was obtained. FINDINGS: Lines and tubes: None Cardiomediastinal silhouette: normal Pulmonary vasculature: normal Lung expansion: normal Lung airspace: normal Lung interstitium: normal Pleura: normal Pneumothorax: no Bones: Unremarkable Other: no IMPRESSION: No acute intrathoracic abnormality.
[2024-04-07] MEDS ORDERED: AZIT500T66 PO (09:51)
[2024-04-07] MEDS ORDERED: PROM1SOL4 PO (09:51)
== END 2024-04-07 10:05 | disposition home or self-care (01) ==
LOC: ER 08:43
DX: J20.9 Acute bronchitis, unspecified (principal)
CPT/HCPCS: 71045

== ENCOUNTER 2024-08-30 23:15 | Emergency (ER) | payer MEDICAID ==
[~2024-08-30] VITALS: Ht 157.5 cm; Wt 96.0 kg
[~2024-08-30 23:15] MED LIST changes: +AZIT500T66 PO; +PROM1SOL4 PO
[2024-08-31 00:45] VITALS: BP 111/61; PULSE 110; RESP 20; TEMP 97.7; O2SAT 97
[2024-08-31] MEDS ORDERED: AMOX875T4 PO (00:51)
[2024-08-31] MEDS ORDERED: ACET500T58 PO (00:51)
[2024-08-31] MEDS ORDERED: CLIN1GEL9 EX (00:51)
--- NOTE | 2024-08-31 00:51 | ED.PDOC ---
History of Present Illness(SKN HPI Comments 29-YEAR-OLD FEMALE PRESENTS TO ER FOR WOUND CHECK. PATIENT WITH PAST MEDICAL HISTORY SIGNIFICANT FOR HIDRADENITIS SUPPURATIVA REPORTS THAT SHE HAS BEEN EXPERIENCING PAIN/SWELLING TO LEFT ARMPIT X3 DAYS AND PRESENTS TO ER TODAY FOR WOUND CHECK. STATES SHE HAS HAD SIMILAR SYMPTOMS IN THE PAST RELATED TO HI DRADENITIS SUPPURATIVA AND RATES HER CURRENT PAIN A 10/10 TO LEFT AXILLA. REPORTS THAT SHE HAS BEEN APPLYING WARM COMPRESSES TO THE AREA WITH SLIGHT RELIEF. PATIENT PRESENTS TO ER AMBULATORY ON ARRIVAL, WITH STEADY GAIT, IN NO DISTRESS. DENIES FEVER, BODY ACHES, CHILLS, SKIN DRAINAGE, SHORTNESS OF BREATH, CHEST PAIN OR ANY FURTHER SYMPTOMS/COMPLAINTS Chief Complaint: Abscess Time Seen by MD: 23:33 Primary Care Provider: UNKNOWN History of Present Illness: Nurses Notes, Medications, Allergies Allergies: Coded Allergies: Apricot Flavor (Verified Allergy, Intermediate, 11/04/23) pt allergic to apricots. gets hives Home Meds Active Scripts Clindamycin Phosphate (Clindagel) 1 % Gel, 1 % EX BID for 7 Days, #1 GEL 0 Refills Prov:ANTONIO MORENO 08/31/24 Amoxicillin & Pot Clavulanate (Amoxicillin/Potassium Cla) 875 Mg Tab, 1 TAB PO BID for 7 Days, #14 TAB 0 Refills Prov:ANTONIO MORENO 08/31/24 Acetaminophen (Acetaminophen) 500 Mg Tab, 500 MG PO Q4HPRN, #30 TAB 0 Refills Prov:ANTONIO MORENO 08/31/24 Promethazine-Dm (Promethazine Dm 6.25-15 mg/5Ml) 1 Kailey Kailey, 5 ML PO TID, #150 ML Prov:LILIYA HUDSON 04/07/24 Azithromycin (Azithromycin) 500 Mg Tab, 1 TAB PO DAILY, #5 TAB Prov:LILIYA HUDSON 04/07/24 Hydrocodone-Acetaminophen (Hydrocodone/Acetaminophen 5-325 mg) 1 Tab Tab, 1 TAB PO Q6HPRN PRN, #20 TAB Prov:KARL ALLISON DO 11/04/23 Ibuprofen (Ibuprofen) 800 Mg Tab, 800 MG PO TID PRN for 15 Days, #40 TAB Prov:KARL ALLISON DO 11/04/23 Ascorbic Acid (VITAMIN C TABLET) 500 Mg Tb, 1 TAB PO DAILY, #30 TAB 3 Refills Prov:MANINDER GAL[facility]IA [facility] 10/05/23 Ferrous Sulfate (FERROUS SULFATE) 325 Mg Tb, 1 TAB PO DAILY, #30 TAB 3 Refills Prov:MANINDER GALICIA [facility] 10/05/23 Reported Medications Vit W/ Ferrous Fumara ( One Daily) Daily Tab, 1 TAB PO DAILY, #90 TAB 3 Refills 09/20/23 Information Source: Patient Mode of Arrival: Ambulatory Past Medical History PAST MEDICAL HISTORY: Thyroid (HYPERTHYROID) Past Medical History (Other): GRAVES DISEASE 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 Family History Family History: Unknown Social History Smoker: Non-Smoker Alcohol: Occasionally Drugs: Denies Drug Use Lives In: Home Constitutional: denies: chills, diaphoresis, fatigue, fever, malaise, sweats, weakness, others EENTM: denies: blurred vision, double vision, ear bleeding, ear discharge, ear drainage, ear pain, ear ringing, eye pain, eye redness, hearing loss, mouth pain, mouth swelling, nasal discharge, nose bleeding, nose congestion, nose pain, photophobia, tearing, throat pain, throat swelling, voice changes, others Respiratory: denies: cough, hemoptysis, orthopnea, SOB at rest, shortness of breath, SOB with excertion, stridor, wheezing, others Cardiovascular: denies: chest pain, dizzy spells, diaphoresis, Dyspnea on exertion, edema, irregular heart beat, left arm pain, lightheadedness, palpit ations, PND, syncope, others Gastrointestinal: denies: abdomen distended, abdominal pain, blood streaked b owels, constipated, diarrhea, dysphagia, difficulty swallowing, hematemesis, melena, nausea, poor appetite, poor fluid intake, rectal bleeding, rectal pain, vomiting, others Genitourinary: denies: abnormal vagina bleeding, burning, dyspareunia, dysuria, flank pain, frequency, hematuria, incontinence, pain, , vagina discharge, urgency, others Neurological: denies: dizziness, fainting, headache, left sided numbness, left sided weakness, numbness, paresthesia, pre-existing deficit, right sided numbness, right sided weakness, seizure, speech problems, tingling, tremors, weakness, others Musculoskeletal: denies: back pain, gout, joint pain, joint swelling, muscle pain, muscle stiffness, neck pain, others Integumetry: reports: others ( STATED IN HPI) Allergic/Immunocompromised: denies: Difficulty Healing, Frequent Infections, Hives, Itching, others Hematologic/Lymphatic: denies: anemia, blood clots, easy bleeding, easy bruising, swollen glands, others Endocrine: denies: excessive hunger, excessive sweating, excessive thirst, excessive urination, flushing, intolerance to cold, intolerance to heat, unexplained weight gain, unexplained weight loss, others Psychiatric: denies: anxiety, bipolar disorder, depression, hopeless, panic disorder, schizophrenia, sleepless, suicidal, others Physical Exam General Appearance: No Apparent Distress, Obese HEENT: PERRL/EOMI Neck: Full Range of Motion, Non-Tender, Normal Respiratory: Chest Non-Tender, Lungs Clear, No Accessory Muscle Use, No Respiratory Distress, Normal Breath Sounds Cardiovascular: No Murmur, No Gallop, Regular Rate/Rhythm Breast Exam: Deferred Gastrointestinal: NOT DONE Genitalia: Deferred Pelvic: Deferred Rectal: Deferred Extremities: Normal capillary refill, Normal range of motion Neurologic: Alert, feedmobile driver II-XII nml as Tested, No Motor Deficits, Normal Affect, Normal Mood, No Sensory Deficits Cerebellar Function: Normal Reflexes: Normal Skin: Dry, Warm, Other (MILD HIDRADENITIS SUPPURATIVA TO LEFT AXILLA NOTED. NO FLUCTUANCE/DRAINAGE/RED STREAKING NOTED.) Peripheral Pulses: 2+ Radial (R), 2+ Radial (L), 2+ Brachial (R), 2+ Brachial (L) Lymphatic: No Adenopathy Was a procedure done? Was a procedure done?: No Sedation Sedation?: No Differential Diagnosis (INTG) Differential Diagnosis: Abrasion Differential Diagnosis: Abscess, Impetigo Differential Diagnosis: Puncture Wound X-Ray, Labs, Meds, VS Vital Signs Date Time Temp Pulse Resp B/P (MAP) Pulse Ox O2 Delivery O2 Flow Rate FiO2 08/30/24 23:55 97.7 110 20 111/61 (78) 97 97.7 ADVISED TO ALTERNATE WARM COMPRESSES ON/OFF ADVISED TO FOLLOW UP WITH PCP AND DISINTEGRATOR FEEDER IN 1-2 DAYS PATIENT VERBALIZED UNDERSTANDING AND AGREEABLE WITH CURRENT PLAN OF CARE ADVISED TO RETURN TO ER IMMEDIATELY IF SYMPTOMS WORSEN Time of 1ST Reevaluation: 00:20 Reevaluation 1ST: N/A Patient Education/Counseling: Diagnosis, Treatment, Prognosis, Need For Follow Up Family Education/Counseling: No Family Present Departure 1 Departure Time of Disposition: 00:42 Impression: Primary Impression: Hidradenitis suppurativa of left axilla Disposition: HOME / SELF CARE / HOMELESS Condition: Stable e-Prescriptions Clindamycin Phosphate (Clindagel) 1 % Gel 1 % EX BID for 7 Days, #1 GEL 0 Refills Prov: ANTONIO MORENO 08/31/24 Amoxicillin & Pot Clavulanate (Amoxicillin/Potassium Cla) 875 Mg Tab 1 TAB PO BID for 7 Days, #14 TAB 0 Refills Prov: ANTONIO MORENO 08/31/24 Acetaminophen (Acetaminophen) 500 Mg Tab 500 MG PO Q4HPRN, #30 TAB 0 Refills Prov: ANTONIO MORENO 08/31/24 Discharged With: Self Critical Care Note Critical Care Time?: No Stability Stability form required: No Heart Score Heart Score: Heart Score Response (Comments) Value History N/A 0 EKG N/A 0 Age N/A 0 Risk Factors N/A 0 Troponin N/A 0 Total 0 ANTONIO MORENO Aug 31, 2024 00:51
== END 2024-08-31 01:10 | disposition home or self-care (01) ==
LOC: ER 23:15
DX: L73.2 Hidradenitis suppurativa (principal); Z48.00 Encounter for change or removal of nonsurgical wound dressing